=== PATIENT | male | born 1985 | race Caucasian/White ===

== ENCOUNTER 2024-02-04 16:11 | Outpatient (CLI) | payer BC | END 2024-02-04 16:12 | disposition home or self-care (01) | LOC: CSHMRI 16:11 | PROVIDERS: ATTEND Pediatrics | DX: M25.461 Effusion, right knee (principal); S83.421A Sprain of lateral collateral ligament of right knee, initial encounter; S86.111A Strain of other muscle(s) and tendon(s) of posterior muscle group at lower leg level, right leg, initial encounter; M67.863 Other specified disorders of tendon, right knee ==